=== PATIENT | male | born 1965 | race Caucasian/White ===

== ENCOUNTER → 2024-10-11 | Outpatient (CLI) | payer MEDICARE, OTHER ==
[~2024-10-11] MED LIST: ASPI81EC PO; BACL20 PO; BISA10S PR; BUSP10 PO; CHOL10002 PO; DIAZ5 PO; DICL25ER PO; DOC250 PO; ESCI20 PO; GABA100 PO; GABA600 PO; GLUCHON PO; HYDACE10B PO; LORA1 SL; POLY17UD PO; SIMV10 PO; TIZA4 PO; TRIA80TC TOP
[2024-10-11 19:42] LABS: BASOPHILS ABSOLUTE AUTO 0.02 K/mm3 (0.00-0.23); BASOPHILS PERCENT AUTO 1 % (0-2); EOSINOPHILS ABSOLUTE AUTO 0.08 K/mm3 (0.00-0.68); EOSINOPHILS PERCENT AUTO 3 % (0-6); Hematocrit 42.8 % (37.0-53.0); Hemoglobin 14.4 g/dL (13.5-17.5); IMMATURE GRAN ABSOLUTE AUTO 0.01 K/mm3 (0.00-0.10); IMMATURE GRAN PERCENT AUTO 0 % (0-1); LYMPHOCYTES ABSOLUTE AUTO 0.88 K/mm3 (0.84-5.20); LYMPHOCYTES PERCENT AUTO 30 % (21-46); MONOCYTES ABSOLUTE AUTO 0.31 K/mm3 (0.16-1.47); MONOCYTES PERCENT AUTO 11 % (4-13); Mean Corpuscular HGB Conc 33.6 g/dL (31.5-36.5); Mean Corpuscular Volume 92 fL (80-100); Mean Platelet Volume 10.7 fL (9.1-12.4); NEUTROPHILS ABSOLUTE AUTO 1.66 K/mm3 (1.96-9.15); NEUTROPHILS PERCENT AUTO 56 % (41-73); Platelet Count 214 K/mm3 (150-400); RDW Coefficient Variation 13.1 % (11.7-14.2); Red Blood Cell Count 4.64 M/mm3 (4.30-5.90); White Blood Cell Count 2.96 K/mm3 (4.00-11.30)
[2024-10-11 20:18] LABS: Alanine Aminotransfer (ALT/SGP 52 U/L (12-78); Albumin, Blood 3.3 g/dL (3.4-5.0); Alk Phos 142 U/L (50-136); Anion Gap 11 mmol/L (3-11); Aspartate Aminotrans (AST/SGOT 28 U/L (12-37); Bilirubin, Total 0.4 mg/dL (0.1-1.0); Blood Urea Nitrogen 21 mg/dL (8-24); Bun/Creatinine Ratio 29.7 (12.0-20.0); CHOL/HDL RATIO 4.2; CO2, Blood 25 mmol/L (21-32); Calcium, Blood 8.7 mg/dL (8.5-10.1); Chloride, Blood 107 mmol/L (98-108); Cholesterol 171 mg/dL (50-200); Creatinine, Blood 0.71 mg/dL (0.60-1.20); Globulin, Blood 3.3 g/dL (2.2-4.0); Glomerular Filtration Rate 104 (60-); Glucose, Blood 104 mg/dL (70-99); HDL Cholesterol 41 mg/dL (>39); LDL/HDL RATIO 2.2; Low Density Lipoprotein Chol 92 mg/dL (0-110); Sodium, Blood 139 mmol/L (136-145); Total Protein, Blood 6.6 g/dL (6.4-8.2); Triglycerides 192 mg/dL (30-160); Very Low Density Lipoprot Chol 38 mg/dL (6-32)
== END | disposition home or self-care (01) ==
LOC: LAB SHORT 15:57 → LAB 15:57
PROVIDERS: Family Medicine
DX: E78.5 Hyperlipidemia, unspecified (principal)
CPT/HCPCS: 80053; 80061; 85025